=== PATIENT | male | born 1950 | race Caucasian/White ===

== ENCOUNTER 2024-02-26 11:57 | Observation (INO) ==
[2024-02-26 12:25] LABS: ABS Basophils 0.1 10^3/uL (0.0-0.1); ABS Lymphocytes 2.9 10^3/uL (1.0-4.8); ABS Monocytes 1.4 10^3/uL (0.0-1.1); ABS Neutrophils 10.5 10^3/uL (1.5-7.6); ABS Nucleated RBC 0.03 10^3/ul; Eosinophil % 0.2 %; Hematocrit 48.7 % (38-53); Hemoglobin 16.9 g/dL (13.2-16.3); Lymphocyte % 19.2 %; Mean Corpuscular Hgb Conc 34.6 g/dL (31-36); Mean Corpuscular Volume 86.7 fL (80-97); Mean Platelet Volume 10.3 fL (7.5-11.2); Nucleated Red Blood Cells % 0.2 %/100WBC (0.0-0.8); Platelet Count 128 10^3/uL (150-450); Red Blood Count 5.62 10^6/uL (4.06-5.63); Red Cell Distribution Width 14.2 % (12-17); White Blood Count 14.9 10^3/uL (3.6-10.2)
[2024-02-26 12:32] LABS: INR 1.43 (0.85-1.14)
[2024-02-26 13:07] LABS: Albumin 4.1 g/dL (3.5-5.7); Albumin/Globulin Ratio 1.7 (1-3); Calcium 9.4 mg/dL (8.6-10.3); Creatinine, Serum 0.99 mg/dL (0.67-1.17); Globulin 2.4 g/dL (2-4); Potassium 3.9 mmol/L (3.5-5.0); Total Bilirubin 1.4 mg/dL (0.2-1.0); Total Protein 6.5 g/dL (6.4-8.9); eGFR CKD-EPI 80.4 (>60)
[2024-02-26] MEDS: Ondansetron 4 mg VIAL 2 MG/ML 2 ml VIAL IV ONE (13:11)
[2024-02-26 13:57] LABS: High Sensitivity Troponin 1 Hr 46 pg/mL (<20)
[2024-02-26 16:09] LABS: Urine Appearance Turbid; Urine Bilirubin Negative (Negative); Urine Blood 1+ (Negative); Urine Color Yellow; Urine Glucose Negative (Negative); Urine Ketones Negative (Negative); Urine Nitrite Negative (Negative); Urine Protein 1+ (>=30 mg/dL) (Negative); Urine Specific Gravity 1.019 (1.002-1.030); Urine Urobilinogen 1+ (Negative)
[2024-02-26 16:41] LABS: Urine Bacteria Absent /HPF (Absent); Urine Red Blood Cell 1+(3-5/hpf) /HPF (0-Trace); Urine White Blood Cell Trace(0-5/hpf) /HPF (0-Trace)
[2024-02-26] MEDS: cefTRIAXone 1 gm/50 mL D5W 1 GM/50 ML BAG IV ONE (18:28)
[2024-02-26] MEDS: Azithromycin 500 mg/250 ml NS 500 MG/250 ML BAG IVPB ONE (18:46)
[2024-02-26] MEDS: Lactated Ringers 1000 ml BAG 1,000 ML IV SCH (21:17)
[2024-02-27] MEDS: Lactated Ringers 1000 ml BAG 1,000 ML IV SCH (03:28)
[2024-02-27 05:50] LABS: ABS Basophils 0.1 10^3/uL (0.0-0.1); ABS Lymphocytes 3.4 10^3/uL (1.0-4.8); ABS Monocytes 1.4 10^3/uL (0.0-1.1); ABS Neutrophils 8.3 10^3/uL (1.5-7.6); ABS Nucleated RBC 0.01 10^3/ul; Eosinophil % 0.2 %; Hematocrit 43.3 % (38-53); Hemoglobin 15.4 g/dL (13.2-16.3); Lymphocyte % 25.5 %; Mean Corpuscular Hemoglobin 30.4 pg (27-33); Mean Corpuscular Hgb Conc 35.6 g/dL (31-36); Mean Corpuscular Volume 85.2 fL (80-97); Mean Platelet Volume 11.1 fL (7.5-11.2); Nucleated Red Blood Cells % 0.1 %/100WBC (0.0-0.8); Platelet Count 108 10^3/uL (150-450); Red Blood Count 5.08 10^6/uL (4.06-5.63); Red Cell Distribution Width 14.2 % (12-17); White Blood Count 13.2 10^3/uL (3.6-10.2)
[2024-02-27 06:40] LABS: Albumin 3.5 g/dL (3.5-5.7); Albumin/Globulin Ratio 1.7 (1-3); Calcium 8.6 mg/dL (8.6-10.3); Creatinine, Serum 0.87 mg/dL (0.67-1.17); Direct Bilirubin 0.4 mg/dL (0.03-0.18); Globulin 2.1 g/dL (2-4); Indirect Bilirubin 1.5 mg/dL (0.3-1.0); Magnesium 1.8 mg/dL (1.9-2.7); Phosphorus 2.5 mg/dL (2.5-5.0); Potassium 4.1 mmol/L (3.5-5.0); Total Bilirubin 1.9 mg/dL (0.2-1.0); Total Protein 5.6 g/dL (6.4-8.9); eGFR CKD-EPI 91.1 (>60)
[2024-02-27 06:55] LABS: TSH Ultra Thyroid Stim Horm 1.21 mcIU/mL (0.34-5.60)
[2024-02-27] MEDS: Magnesium Sulfate 2 gm BAG 2 GM/50 ML BAG IVPB ONE (08:15)
[2024-02-27] MEDS: Aspirin EC 81 mg TAB.EC (enteric coated) PO SCH (09:11)
[2024-02-27] MEDS: Heparin 5000 UNITS/ML 1 mL VIAL SUBCUT SCH (23:24)
[2024-02-28 05:42] LABS: Hematocrit 47.5 % (38-53); Hemoglobin 16.4 g/dL (13.2-16.3); Mean Corpuscular Hemoglobin 30.6 pg (27-33); Mean Corpuscular Hgb Conc 34.5 g/dL (31-36); Mean Corpuscular Volume 88.7 fL (80-97); Red Blood Count 5.35 10^6/uL (4.06-5.63); Red Cell Distribution Width 14.3 % (12-17); White Blood Count 11.9 10^3/uL (3.6-10.2)
[2024-02-28 05:52] LABS: Albumin 3.5 g/dL (3.5-5.7); Albumin/Globulin Ratio 1.5 (1-3); Calcium 8.7 mg/dL (8.6-10.3); Creatinine, Serum 0.84 mg/dL (0.67-1.17); Globulin 2.4 g/dL (2-4); Total Bilirubin 1.6 mg/dL (0.2-1.0); Total Protein 5.9 g/dL (6.4-8.9); eGFR CKD-EPI 92.1 (>60)
[2024-02-28 06:22] LABS: ABS Basophils 0.1 10^3/uL (0.0-0.1); ABS Eosinophils 0.1 10^3/uL (0.0-0.5); ABS Lymphocytes 3.7 10^3/uL (1.0-4.8); ABS Nucleated RBC 0.02 10^3/ul; Eosinophil % 1.2 %; Lymphocyte % 31.5 %; Mean Platelet Volume 10.8 fL (7.5-11.2); Nucleated Red Blood Cells % 0.1 %/100WBC (0.0-0.8); Platelet Count 107 10^3/uL (150-450)
[2024-02-28 09:36] VITALS: BP 128/92
[2024-02-28] MEDS: Potassium Chlor 20 meq TAB.ER PO ONE (10:01)
[2024-02-28] MEDS: Sulfur Hexaflouride MICROSPHR 25 MG VIAL IV PRN (15:41)
[2024-02-28] MEDS ORDERED: Sulfur Hexaflouride MICROSPHR 25 MG VIAL IV PRN (16:15)
== END 2024-03-02 09:05 ==
LOC: EDHOLD 11:57 → ED 11:57 → MED 22:33
PROVIDERS: ADMIT Internal Medicine; ATTEND Hospitalist